=== PATIENT | male | born 1985 | race Caucasian/White ===

== ENCOUNTER 2016-10-21 14:12 | Emergency (ER) | payer OTHER ==
[2016-10-21] MEDS ORDERED: Morphine INJ* 4 MG/ML 1 ML SYRINGE IV ONE (15:07)
[2016-10-21] MEDS ORDERED: Ondansetron INJ* 2 MG/ML VIAL IV ONE ×2 (15:07→17:04)
[2016-10-21] MEDS ORDERED: Pantoprazole IV* 40 MG IV ONE (15:07)
[2016-10-21] MEDS: NS 0.9% 1000 ML* 3,000 ML IV ONE ×2 (15:38→17:08)
[2016-10-21 15:40] LABS: Hematocrit 46 % (42-52); Hemoglobin 15.7 g/dl (14.0-18.0); Mean Corpuscular HGB Conc 34 g/dl (31-36); Mean Corpuscular Hemoglobin 29 pg (27-31); Mean Corpuscular Volume 85 fL (80-94); Mean Platelet Volume 9 um3 (7.4-10.4); Red Blood Count 5.44 10^6/ul (4.0-5.4); Red Cell Distribution Width 14 % (10.5-15); White Blood Count 9.7 10^3/ul (3.5-10.8)
[2016-10-21 15:57] LABS: Albumin 4.2 g/dL (3.2-5.2); BUN/Creatinine Ratio 12.7 (8-20); C Reactive Protein 11.91 mg/L (< 5.00); Calcium 9.4 mg/dL (8.6-10.3); EGFR African American 148.1 (>60); EGFR Non-African American 115.2 (>60); Globulin 3.1 g/dL (2-4); Potassium 3.7 mmol/L (3.5-5.0); Total Bilirubin 0.3 mg/dL (0.2-1.0); Total Protein 7.3 g/dL (6.4-8.9)
[2016-10-21] MEDS ORDERED: Iohexol 300* (CONTRAST) 10 ML SDV IV ONE (16:14)
[2016-10-21] MEDS ORDERED: Ondansetron INJ* 2 MG/ML VIAL ONE (17:06)
--- NOTE | 2016-10-21 17:46 | RAD ---
Indication: Right lower quadrant pain. Contrast: Administered 127.0 ml of OMNIPAQUE 300 mgi/ml CT of the abdomen and pelvis was performed after oral and IV contrast administration. Coronal and sagittal reconstructed images were obtained. Lung bases demonstrate dependent changes. No alveolar consolidation is noted. Heart is of normal size without evidence of pericardial effusion. Liver is normal in size. No focal lesions or intrahepatic ductal dilatation is noted. The spleen is normal in size. Pancreas demonstrates no mass effect or ductal dilatation. Common duct is not dilated. Gallbladder demonstrates no calcified gallstones, pericholecystic fluid or wall thickening. No adrenal lesions are noted. There may be some adrenal hyperplasia of the left adrenal gland. The kidneys demonstrate symmetric nephrograms without focal lesions or hydronephrosis. No retroperitoneal lymphadenopathy is noted. No dilated loops of bowel are noted. CT of the pelvis demonstrates fluid throughout the colon. This may represent gastroenteritis. The terminal ileum is unremarkable. The appendix is visualized and is normal in caliber. No free fluid is identified. The urinary bladder is unremarkable. No hernias are noted. Scattered hyperplastic inguinal lymph nodes are noted bilaterally. IMPRESSION: NORMAL APPENDIX. FLUID-FILLED COLON SUGGESTIVE OF GASTROENTERITIS. DEPENDENT CHANGES ARE NOTED IN THE LUNG CUETO BILATERALLY.
[2016-10-21 18:36] LABS: Urine Bilirubin Negative (Negative); Urine Glucose Negative (Negative); Urine Nitrite Negative (Negative)
[2016-10-21 20:07] VITALS: BP 133/77
--- NOTE | 2016-11-01 07:29 | ED ---
Jason, DoctorEmili, scribed for Marbin Prakash MD on 10/21/16 at 1515 . GI/ HPI - HPI Summary HPI Summary: 31 year old male arrived to [facility] c/o abdominal pain and N/V/D beginning a day and a half ago. He reports pain around the center of his abdomen, and describes it as a "discomfort" which he rates as 2/10. The pain does not radiate. Since yesterday, he has had 5 episodes of vomiting and 4 episodes of diarrhea; he denies any hematemesis or rhinorrhea. However, he is also experiencing a slight subjective fever (better with ibuprofen), generalized muscular pain, BERNSTEIN, decreased appetite, and a cough. He has experienced similar symptoms in the past (about 2.5 years ago, was not admitted to the hospital) and has no other pertinent PMHx or surgical history. - History of Current Complaint Chief Complaint: EDNauseaVomitDiarrh Time Seen by Provider: 10/21/16 14:44 Stated Complaint: VOMITING / DIARRHEA/ABD PAIN Hx Obtained From: Patient Onset/Duration: Started Days Ago Timing: Constant Severity: Moderate Current Severity: Moderate Pain Intensity: 2 Location of Pain: Epigastric Pain Characteristics: Other: - 'discomfort' Associated Signs and Symptoms: Positive: Nausea, Vomiting, Rectal Pain - slight pain during diarrhea, Diarrhea, Fever, Change in Appetite - decreased, Abdominal Pain, Cough, Other: - headache, no rhinorrhea. Negative: Hematemesis , Back Pain Alleviating Factor(s): OTC Analgesics - ibuprofen - lowered fever - Allergy/Home Medications Allergies/Adverse Reactions: Allergies Allergy/AdvReac Type Severity Reaction Status Date / Time No Known Allergies Allergy Verified 08/14/14 14:14 PMH/Surg Hx/FS Hx/Imm Hx Endocrine/Hematology History: Denies: Hx Diabetes, Hx Thyroid Disease Cardiovascular History: Denies: Hx Hypertension Respiratory History: Denies: Hx Asthma, Hx Chronic Obstructive Pulmonary Disease (COPD) GI History: Denies: Hx Ulcer Infectious Disease History: No Infectious Disease History: Denies: Hx Hepatitis, Hx Human Immunodeficiency Virus (HIV), Traveled Outside the [place] in Last 30 Days - Family History Known Family History: Positive: Other - stomach ulcers - Social History Occupation: Employed Full-time Alcohol Use: Rare Substance Use Type: Reports: None Smoking Status (MU): Light Every Day Tobacco Smoker Amount Used/How Often: < 1/2 ppd Review of Systems Positive: Fever Negative: Nasal Discharge Positive: Cough Positive: Abdominal Pain, Vomiting, Diarrhea, Nausea Positive: Myalgia - generalized muscle weakness Positive: Headache All Other Systems Reviewed And Are Negative: Yes Physical Exam - Summary Physical Exam Summary: General appearance: well appearing [], NAD, normal development, good nutrition , normal body habitus, well groomed HEENT: normocephalic, atraumatic, ears and nose without masses or lesions conjunctivae normal, dry oral mucosa, slight rhinorrhea Neck: symmetric without masses or tracheal deviation, no thyromegaly Chest: normal respiratory effort Cardiovascular: good color, warmth, and capillary refill in extremities, no peripheral edema Respiratory: Clear to auscultation Abdomen: tenderness and pain on the left side of the belly, tenderness in RLQ, some epigastric pain, No McBurney's point tenderness Skin: no visible rashes, lesions, or ulcers Neurological/Psychiatric: good fine motor coordination, sensation intact to light touch distally, cranial nerves II-XII grossly intact, appropriate judgment and insight, oriented to time, place and person, normal mood and affect Triage Information Reviewed: Yes Vital Signs On Initial Exam: Initial Vitals Temp Pulse Resp BP Pulse Ox 98.5 F 97 16 138/76 98 10/21/16 14:14 10/21/16 14:14 10/21/16 14:14 10/21/16 14:14 10/21/16 14:14 Vital Signs Reviewed: Yes Diagnostics - Vital Signs Vital Signs Temp Pulse Resp BP Pulse Ox 10/21/16 14: 98.4 F 100 16 138/76 98 10/21/16 14:14 98.5 F 97 16 138/76 98 - Laboratory Lab Results: Lab Results 10/21/16 10/21/16 10/21/16 Range/Units 15:30 15:30 15:30 WBC 9.7 (3.5-10.8) 10^3/ul RBC 5.44 H (4.0-5.4) 10^6/ul Hgb 15.7 (14.0-18.0) g/dl Hct 46 (42-52) % MCV 85 (80-94) fL MCH 29 (27-31) pg MCHC 34 (31-36) g/dl RDW 14 (10.5-15) % Plt Count 187 (150-450) 10^3/ul MPV 9 (7.4-10.4) um3 Neut % (Auto) 77.1 (38-83) % Lymph % (Auto) 9.3 L (25-47) % [place] % (Auto) 11.4 H (1-9) % Eos % (Auto) 1.2 (0-6) % Baso % (Auto) 1.0 (0-2) % Absolute Neuts (auto) 7.5 (1.5-7.7) 10^3/ul Absolute Lymphs (auto) 0.9 L (1.0-4.8) 10^3/ul Absolute Monos (auto) 1.1 H (0-0.8) 10^3/ul Absolute Eos (auto) 0.1 (0-0.6) 10^3/ul Absolute Basos (auto) 0.1 (0-0.2) 10^3/ul Absolute Nucleated RBC 0.01 10^3/ul Nucleated RBC % 0.1 Sodium 136 (133-145) mmol/L Potassium 3.7 (3.5-5.0) mmol/L Chloride 105 (101-111) mmol/L Carbon Dioxide 26 (22-32) mmol/L Anion Gap 5 (2-11) mmol/L BUN 10 (6-24) mg/dL Creatinine 0.79 (0.67-1.17) mg/dL Est GFR ( Amer) 148.1 (>60) Est GFR (Non-Af Amer) 115.2 (>60) BUN/Creatinine Ratio 12.7 (8-20) Glucose 101 H (70-100) mg/dL Lactic Acid 0.8 (0.5-2.0) mmol/L Calcium 9.4 (8.6-10.3) mg/dL Total Bilirubin 0.30 (0.2-1.0) mg/dL AST 19 (13-39) U/L ALT 24 (7-52) U/L Alkaline Phosphatase 81 (34-104) U/L C-Reactive Protein 11.91 H (< 5.00) mg/L Total Protein 7.3 (6.4-8.9) g/dL Albumin 4.2 (3.2-5.2) g/dL Globulin 3.1 (2-4) g/dL Albumin/Globulin Ratio 1.4 (1-3) Amylase 31 (29-103) U/L Lipase 19 (11.0-82.0) U/L Urine Color Urine Appearance Urine pH (5-9) Ur Specific [place] (1.010-1.030) Urine Protein (Negative) Urine Ketones (Negative) Urine Blood (Negative) Urine Nitrate (Negative) Urine Bilirubin (Negative) Urine Urobilinogen (Negative) Ur Leukocyte Esterase (Negative) Urine Glucose (Negative) 10/21/16 Range/Units 18:25 WBC (3.5-10.8) 10^3/ul RBC (4.0-5.4) 10^6/ul Hgb (14.0-18.0) g/dl Hct (42-52) % MCV (80-94) fL MCH (27-31) pg MCHC (31-36) g/dl RDW (10.5-15) % Plt Count (150-450) 10^3/ul MPV (7.4-10.4) um3 Neut % (Auto) (38-83) % Lymph % (Auto) (25-47) % [place] % (Auto) (1-9) % Eos % (Auto) (0-6) % Baso % (Auto) (0-2) % Absolute Neuts (auto) (1.5-7.7) 10^3/ul Absolute Lymphs (auto) (1.0-4.8) 10^3/ul Absolute Monos (auto) (0-0.8) 10^3/ul Absolute Eos (auto) (0-0.6) 10^3/ul Absolute Basos (auto) (0-0.2) 10^3/ul Absolute Nucleated RBC 10^3/ul Nucleated RBC % Sodium (133-145) mmol/L Potassium (3.5-5.0) mmol/L Chloride (101-111) mmol/L Carbon Dioxide (22-32) mmol/L Anion Gap (2-11) mmol/L BUN (6-24) mg/dL Creatinine (0.67-1.17) mg/dL Est GFR ( Amer) (>60) Est GFR (Non-Af Amer) (>60) BUN/Creatinine Ratio (8-20) Glucose (70-100) mg/dL Lactic Acid (0.5-2.0) mmol/L Calcium (8.6-10.3) mg/dL Total Bilirubin (0.2-1.0) mg/dL AST (13-39) U/L ALT (7-52) U/L Alkaline Phosphatase (34-104) U/L C-Reactive Protein (< 5.00) mg/L Total Protein (6.4-8.9) g/dL Albumin (3.2-5.2) g/dL Globulin (2-4) g/dL Albumin/Globulin Ratio (1-3) Amylase (29-103) U/L Lipase (11.0-82.0) U/L Urine Color Yellow Urine Appearance Clear Urine pH 5.0 (5-9) Ur Specific [place] > 1.060 H (1.010-1.030) Urine Protein Negative (Negative) Urine Ketones Negative (Negative) Urine Blood Negative (Negative) Urine Nitrate Negative (Negative) Urine Bilirubin Negative (Negative) Urine Urobilinogen Negative (Negative) Ur Leukocyte Esterase Negative (Negative) Urine Glucose Negative (Negative) Result Diagrams: 10/21/16 15:30 10/21/16 15:30 Lab Statement: Any lab studies that have been ordered have been reviewed, and results considered in the medical decision making process. - CT CT A/P CT Interpretation Completed By: Radiologist - IMPRESSION: NORMAL APPENDIX. FLUID -FILLED COLON SUGGESTIVE OF GASTROENTERITIS. DEPENDENT CHANGES ARE NOTED IN THE LUNG CUETO BILATERALLY. Re-Evaluation - Re-Evaluation First Eval Re-Evaluation Time: 18:05 Change: Unchanged Comment: Discussed CT results with pt Second Eval Re-Evaluation Time: 18:57 Comment: Discussed treatment options with pt. He is stable and ready for discharge. GIGU Course/Dx - Diagnoses Provider Diagnoses: Dehydration, Gastroenteritis Discharge - Discharge Plan Condition: Stable Disposition: HOME Prescriptions: Ondansetron ODT TAB* [Zofran 4 MG Odt TAB*] 4 mg PO Q8H PRN #20 tab.odt PRN Reason: nausea Patient Education Materials: Dehydration (ED), Gastroenteritis (ED) Referrals: Beltran Patel MD [Primary Care Provider] - The documentation as recorded by the Doctor altamirano Tahera accurately reflects the service I personally performed and the decisions made by me, Marbin Prakash MD.
== END 2016-10-21 20:06 | disposition home or self-care (01) ==
LOC: ED 14:12
DX: E86.0 Dehydration (principal); K52.9 Noninfective gastroenteritis and colitis, unspecified; R50.9 Fever, unspecified; R10.9 Unspecified abdominal pain; R05 Cough; R51 Headache; F17.210 Nicotine dependence, cigarettes, uncomplicated
CPT/HCPCS: 36415; 74177; 80053; 81003; 82150; 83605; 83690; 85025; 86140; 96361; 96374; 99283; J2270; J2405; Q9967

== ENCOUNTER 2017-08-24 12:30 | Emergency (ER) | payer OTHER ==
[2017-08-24 13:39] VITALS: BP 115/72
--- NOTE | 2017-08-24 16:19 | UC ---
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 - History of Current Complaint Chief Complaint: UCGeneralIllness Stated Complaint: COUGH Time Seen by Provider: 08/24/17 15:52 Hx Obtained From: Patient Onset/Duration: Gradual Onset, Lasting Weeks - 4, Still Present Timing: Constant Severity Initially: Moderate Severity Currently: Moderate Pain Intensity: 2 Character: Cough: Productive Aggravating Factors: Deep Breaths Alleviating Factors: Nothing Associated Signs And Symptoms: Positive: Pleuritic Chest Pain, Nasal Congestion - Allergies/Home Medications Allergies/Adverse Reactions: Allergies Allergy/AdvReac Type Severity Reaction Status Date / Time No Known Allergies Allergy Verified 08/24/17 13:39 Home Medications: Home Medications Divalproex ER TAB(*) [Depakote ER TAB(*)] 500 mg PO QPM 08/24/17 [History Confirmed 08/24/17] PMH/Surg Hx/FS Hx/Imm Hx Previously Healthy: No Psychological History: Bipolar Disorder - Surgical History Surgical History: None - Family History Known Family History: Positive: Other - stomach ulcers - Social History Occupation: Employed Full-time Lives: With Family Alcohol Use: Rare Substance Use Type: None Smoking Status (MU): Light Every Day Tobacco Smoker Amount Used/How Often: < 1/2 ppd - Immunization History Most Recent Tetanus Shot: UTD Review of Systems Constitutional: Negative Skin: Negative Eyes: Negative ENT: Negative Respiratory: Negative Cardiovascular: Negative Gastrointestinal: Negative Genitourinary: Negative Motor: Negative Neurovascular: Negative Musculoskeletal: Negative Neurological: Negative Psychological: Negative Is Patient Immunocompromised?: No All Other Systems Reviewed And Are Negative: Yes Physical Exam Triage Information Reviewed: Yes Appearance: Well-Appearing, No Pain Distress, Well-Nourished Vital Signs: Initial Vital Signs Temp 97.4 F 08/24/17 13:35 Pulse 88 08/24/17 13:35 Resp 20 08/24/17 13:35 BP 115/72 08/24/17 13:35 Pulse Ox 97 08/24/17 13:35 Vital Signs Reviewed: Yes Eye Exam: Normal Eyes: Positive: Conjunctiva Clear ENT Exam: Normal ENT: Positive: Normal ENT inspection, Hearing grossly normal, Pharynx normal, Nasal congestion, Nasal drainage, Uvula midline. Negative: Tonsillar swelling, Tonsillar exudate, Trismus, Muffled voice, Hoarse voice, Dental tenderness, Sinus tenderness Dental Exam: Normal Neck exam: Normal Neck: Positive: Supple, Nontender, No Lymphadenopathy Respiratory Exam: Normal Respiratory: Positive: Chest non-tender, Lungs clear, Normal breath sounds, No respiratory distress, No accessory muscle use Cardiovascular Exam: Normal Cardiovascular: Positive: RRR, No Murmur, Pulses Normal, Brisk Capillary Refill Musculoskeletal Exam: Normal Musculoskeletal: Positive: Strength Intact, ROM Intact, No Edema Neurological Exam: Normal Neurological: Positive: Alert, Muscle Tone Normal Psychological Exam: Normal Skin Exam: Normal UC Diagnostic Evaluation - Laboratory O2 Sat by Pulse Oximetry: 97 Respiratory Course/Dx - Course Course Of Treatment: Augmentin, sinusitis, albuterol, increase fluids, refused work note follow with pcp - Differential Dx/Diagnosis Provider Diagnoses: Bronchitis, Acute Rhinosinusitis Discharge - Discharge Plan Condition: Stable Disposition: HOME Prescriptions: Albuterol HFA INHALER* [Ventolin HFA Inhaler*] 2 puff INH Q4H PRN #1 mdi PRN Reason: cough/chest tightness Amoxicillin/Clavulanate TAB* [Augmentin TAB 875*] 875 mg PO BID #20 tab Fluticasone NASAL SPRAY 50MCG* [Flonase NASAL SPRAY 50MCG*] 2 spray BOTH NARES DAILY #1 btl Patient Education Materials: Sinusitis (ED), How to Use a Metered-Dose Inhaler (ED), Acute Bronchitis (ED), How to Use Nasal [place] (ED) Referrals: Beltran Patel MD [Primary Care Provider] - If Needed
== END 2017-08-24 16:44 | disposition home or self-care (01) ==
LOC: UCEAST 12:30
DX: J40 Bronchitis, not specified as acute or chronic (principal); J01.90 Acute sinusitis, unspecified; F17.210 Nicotine dependence, cigarettes, uncomplicated
CPT/HCPCS: 99212; G0463

== ENCOUNTER 2017-11-16 02:58 | Inpatient (IN) | payer OTHER ==
[2017-11-16 03:29] LABS: ABS Basophils 0.1 10^3/ul (0-0.2); ABS Eosinophils 0.2 10^3/ul (0-0.6); ABS Lymphocytes 2.5 10^3/ul (1.0-4.8); ABS Monocytes 0.9 10^3/ul (0-0.8); ABS Neutrophils 9.4 10^3/ul (1.5-7.7); ABS Nucleated RBC 0 10^3/ul; Eosinophil % 1.7 % (0-6); Hematocrit 43 % (42-52); Hemoglobin 14.8 g/dl (14.0-18.0); Mean Corpuscular HGB Conc 34 g/dl (31-36); Mean Corpuscular Hemoglobin 30 pg (27-31); Mean Corpuscular Volume 87 fL (80-94); Mean Platelet Volume 9.4 um3 (7.4-10.4); Nucleated Red Blood Cells % 0.1; Platelet Count 251 10^3/ul (150-450); Red Blood Count 4.97 10^6/ul (4.0-5.4); Red Cell Distribution Width 15 % (10.5-15); White Blood Count 13.1 10^3/ul (3.5-10.8)
[2017-11-16 03:34] LABS: Urine Appearance Clear; Urine Blood Negative (Negative); Urine Color Yellow; Urine Ketones Trace (Negative); Urine Protein Negative (Negative); Urine Specific Gravity 1.024 (1.010-1.030); Urine Urobilinogen Negative (Negative)
[2017-11-16 03:45] LABS: EGFR Non-African American 83.3 (>60)
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
[2017-11-16] MEDS ORDERED: Divalproex DR TAB(*) 500 MG PO ONE (10:09)
[2017-11-16] MEDS ORDERED: QUEtiapine TAB* 100 MG PO ONE (10:09)
[2017-11-16] MEDS ORDERED: Ibuprofen TAB* 600 MG PO PRN (10:10)
[2017-11-16] MEDS ORDERED: Albuterol HFA INHALER* 8 gm MDI INH PRN (13:18)
[2017-11-16] MEDS ORDERED: Al Hydrox/Mg Hydrox/Simet LIQ* 30 ML UDC PO PRN (13:19)
[2017-11-16] MEDS ORDERED: Acetaminophen TAB* 325 MG PO PRN (13:19)
[2017-11-16] MEDS ORDERED: Nicotine GUM* 2 MG PO PRN (13:19)
[2017-11-16] MEDS ORDERED: Nicotine Inhaler* 10 MG AMP INH PRN (13:19)
[2017-11-16] MEDS ORDERED: Mouth Piece, Nicotine* 1 EACH CARTRIDGE INH ONE (14:00)
[2017-11-16] MEDS: Ibuprofen TAB* 600 MG PO SCH ×2 (17:18→20:38)
[2017-11-16] MEDS: QUEtiapine TAB* 100 MG PO SCH ×2 (20:41→20:55)
[2017-11-16] MEDS: Divalproex ER TAB(*) 500 MG PO SCH ×2 (20:41→20:55)
[2017-11-17] MEDS: Divalproex DR TAB(*) 500 MG PO SCH ×2 (10:01→20:58)
[2017-11-17] MEDS: Nicotine PATCH 7 MG/24 HR* PATCH TRANSDERM SCH (10:03)
[2017-11-17] MEDS: Vitamin THERAPEUTIC TAB PO SCH (10:03)
[2017-11-17] MEDS: QUEtiapine TAB* 100 MG PO SCH ×2 (10:03→22:02)
[2017-11-17] MEDS: Ibuprofen TAB* 600 MG PO SCH ×3 (10:04→20:57)
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
[2017-11-17] MEDS ORDERED: Divalproex DR TAB(*) 500 MG PO SCH (21:00)
[2017-11-18] MEDS: Ibuprofen TAB* 600 MG PO SCH ×3 (06:00→23:00)
[2017-11-18] MEDS: Divalproex DR TAB(*) 500 MG PO SCH ×2 (09:39→21:29)
[2017-11-18] MEDS: Nicotine PATCH 7 MG/24 HR* PATCH TRANSDERM SCH (09:40)
[2017-11-18] MEDS: Vitamin THERAPEUTIC TAB PO SCH (09:40)
[2017-11-18] MEDS: QUEtiapine TAB* 100 MG PO SCH ×2 (09:40→21:30)
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
[2017-11-19] MEDS: Ibuprofen TAB* 600 MG PO SCH ×3 (06:00→21:39)
[2017-11-19] MEDS: Divalproex DR TAB(*) 500 MG PO SCH ×2 (09:04→21:37)
[2017-11-19] MEDS: Vitamin THERAPEUTIC TAB PO SCH (09:05)
[2017-11-19] MEDS: Nicotine PATCH 7 MG/24 HR* PATCH TRANSDERM SCH (09:05)
[2017-11-19] MEDS: QUEtiapine TAB* 100 MG PO SCH (21:38)
[2017-11-20] MEDS: Ibuprofen TAB* 600 MG PO SCH ×3 (06:00→22:04)
[2017-11-20 07:25] LABS: EGFR Non-African American 114.4 (>60)
[2017-11-20] MEDS: Divalproex DR TAB(*) 500 MG PO SCH ×2 (10:03→22:02)
[2017-11-20] MEDS: Vitamin THERAPEUTIC TAB PO SCH (10:04)
[2017-11-20] MEDS: Nicotine PATCH 7 MG/24 HR* PATCH TRANSDERM SCH (10:04)
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
[2017-11-20] MEDS: QUEtiapine TAB* 100 MG PO SCH (22:03)
[2017-11-21] MEDS: Ibuprofen TAB* 600 MG PO SCH ×3 (06:00→21:42)
[2017-11-21] MEDS: Divalproex DR TAB(*) 500 MG PO SCH ×2 (09:09→21:42)
[2017-11-21] MEDS: Vitamin THERAPEUTIC TAB PO SCH (09:10)
[2017-11-21] MEDS: Nicotine PATCH 7 MG/24 HR* PATCH TRANSDERM SCH (09:10)
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
[2017-11-21] MEDS: QUEtiapine TAB* 100 MG PO SCH (21:42)
[2017-11-22] MEDS: Ibuprofen TAB* 600 MG PO SCH ×4 (08:33→20:59)
[2017-11-22] MEDS: Nicotine PATCH 7 MG/24 HR* PATCH TRANSDERM SCH (09:14)
[2017-11-22] MEDS: Vitamin THERAPEUTIC TAB PO SCH (09:14)
[2017-11-22] MEDS: Divalproex DR TAB(*) 500 MG PO SCH ×2 (09:15→20:57)
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
[2017-11-22] MEDS: QUEtiapine TAB* 100 MG PO SCH (20:58)
[2017-11-23 07:41] VITALS: BP 120/63
[2017-11-23] MEDS: Nicotine PATCH 7 MG/24 HR* PATCH TRANSDERM SCH (08:15)
[2017-11-23] MEDS: Ibuprofen TAB* 600 MG PO SCH ×2 (08:15→14:05)
[2017-11-23] MEDS: Divalproex DR TAB(*) 500 MG PO SCH (08:16)
[2017-11-23] MEDS: Vitamin THERAPEUTIC TAB PO SCH (08:39)
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
--- NOTE | 2017-12-12 08:06 | ED ---
Herson Gomez Gabriel, garrettibed for Xu Agarwal MD on 11/16/17 at 1130 . Progress - Progress Note Progress Note: This patient was signed out from Dr. Murrell, pending disposition, awaiting MHE. After MHE by Dr. Danielson the patient was diagnosed with bipolar disorder. The patients condition is stable and will be a voluntary admission. - Consult/PCP Time Called: 02:59 Course/Dx - Course Course Of Treatment: This patient was signed out from Dr. Murrell, pending disposition, awaiting MHE. After MHE by Dr. Danielson the patient was diagnosed with bipolar disorder. The patients condition is stable and will be a voluntary admission. - Diagnoses Provider Diagnoses: Bipolar disorder Discharge - Sign-Out/Discharge Documenting (check all that apply): Discharge/Admit/Transfer - admitted - Discharge Plan Condition: Stable [place] [facility] [place]: Beltran Patel MD [Primary Care Provider] - The documentation as recorded by the Herson altamirano Gabriel accurately reflects the service I personally performed and the decisions made by Any campos Jerry, MD.
== END 2017-11-23 16:39 | disposition home or self-care (01) | DRG 753 ==
LOC: ED 02:58 → BSU 16:36
PROVIDERS: ADMIT Psychiatry & Neurology Psychiatry; ATTEND Psychiatry & Neurology Psychiatry
DX: F31.13 Bipolar disorder, current episode manic without psychotic features, severe (principal); R45.851 Suicidal ideations; F17.210 Nicotine dependence, cigarettes, uncomplicated; F31.81 Bipolar II disorder; Z72.89 Other problems related to lifestyle; Z83.79 Family history of other diseases of the digestive system
CPT/HCPCS: 36415; 80053; 80061; 80164; 80307; 80320; 80329; 81003; 81015; 83036; 84443; 85025; 87086; 93005; 99222; 99231; 99232; 99238; 99283; A9270-GY; G0480

== ENCOUNTER 2019-03-16 14:17 | Emergency (ER) | payer OTHER ==
[2019-03-16 15:51] VITALS: BP 138/92
--- NOTE | 2019-03-16 15:52 | UC ---
Dental HPI - HPI Summary HPI Summary: 33 yo male presents with dental pain. He tells me that he has a history of bad teeth and has had frequent dental abscesses. Over the last 2-3 days has had pain , swelling, and throbbing to a left lower tooth. He has been taking ibuprofen for discomfort with mild relief of pain. Denies fever, chills. He is tolerating po well - History of Current Complaint Chief Complaint: UCDentalProblem Stated Complaint: L MOUTH/FACE COMP Time Seen by Provider: 03/16/19 15:52 Hx Obtained From: Patient Severity: Moderate Pain Intensity: 5 Pain Scale Used: 0-10 Numeric - Allergies/Home Medications Allergies/Adverse Reactions: Allergies Allergy/AdvReac Type Severity Reaction Status Date / Time No Known Allergies Allergy Verified 03/16/19 15:51 PMH/Surg Hx/FS Hx/Imm Hx Psychological History: Depression, Bipolar Disorder - Surgical History Surgical History: None - Family History Known Family History: Positive: Other - stomach ulcers - Social History Lives: With Family Alcohol Use: Rare Substance Use Type: Prescribed Smoking Status (MU): Heavy Every Day Tobacco Smoker Amount Used/How Often: 1/2 PPD for last 30 days and used no other tobacco products in last 30 days - Immunization History Most Recent Influenza Vaccination: unable to recall. Most Recent Tetanus Shot: UTD Most Recent Pneumonia Vaccination: NA Review of Systems All Other Systems Reviewed And Are Negative: No Constitutional: Positive: Negative Skin: Positive: Negative ENT: Positive: Dental Pain Respiratory: Positive: Negative Cardiovascular: Positive: Negative Neurovascular: Positive: Negative Neurological: Positive: Negative Psychological: Positive: Negative Physical Exam - Summary Physical Exam Summary: GENERAL: NAD. WDWN. No pain distress. SKIN: No rashes, sores, lesions, or open wounds. HEENT: Head: AT/NC Nose: Nasal mucosa pink and moist. NTTP maxillary and frontal sinus. Throat: Posterior oropharynx without exudates, erythema, or tonsillar enlargement. Uvula midline. NECK: Supple. Nontender. No lymphadenopathy. CHEST: CTAB. No r/r/w. No accessory muscle use. Breathing comfortably and in no distress. CV: RRR. Without m/r/g. Pulses intact. Cap refill <2seconds NEURO: Alert. PSYCH: Age appropriate behavior. Triage Information Reviewed: Yes Vital Signs: Initial Vital Signs Temp 99.9 F 03/16/19 15:48 Pulse 101 03/16/19 15:48 Resp 18 03/16/19 15:48 BP 138/92 03/16/19 15:48 Pulse Ox 99 03/16/19 15:48 Vital Signs Reviewed: Yes Dental: Positive: Percussion Tenderness @ - Tooth #19, Gross Decay/Caries @ - throughout, Dental Fracture @ - throughout, Abscess @ - Tooth #19. Negative: Cellulitis @, Cervical Lymphadenopathy, Bleeding Procedures - Incision and Drainage Left Lower Anesthesia: Topical Instrument(s): Needle - 22G Packing: Other - None Dental Complaint Course/Dx - Course Course Of Treatment: Dental abscess. The procedure was explained to the pt and all questions were answered. A time out was performed, witnessed, and signed. The area anesthetized with cetacaine and good anesthetization was achieved. A 22G needle was used to yuli the dental abscess and copious purulent yellow material was expressed. Pt tolerated well. Will place him on clindamycin for dental abscess and advise him to f/u with dentist as soon as possible. - Differential Dx/Diagnosis Provider Diagnosis: Dental abscess Discharge ED - Sign-Out/Discharge Documenting (check all that apply): Patient Departure All imaging exams completed and their final reports reviewed: No Studies - Discharge Plan Condition: Stable Disposition: HOME Prescriptions: Clindamycin HCl 300 mg PO TID #21 capsule Patient Education Materials: Dental Abscess (ED) Referrals: Gloria Clark DO [Primary Care Provider] - Additional Instructions: If you develop a fever, shortness of breath, chest pain, new or worsening symptoms - please call your PCP or go to the ED immediately. Your blood pressure was high at todays visit. Please see your primary provider within 4 weeks for recheck and re-evaluation. Please follow up with your dentist as soon as possible - Billing Disposition and Condition Condition: STABLE Disposition: Home
[2019-03-16] MEDS ORDERED: Benzocaine/Butamben/Tetracain (CETACAINE - SINGLE USE) 5 gm TOPICAL ONE (15:56)
[2019-03-16] MEDS ORDERED: Clindamycin CAP* 150 MG PO ONE (16:16)
== END 2019-03-16 16:24 | disposition home or self-care (01) ==
LOC: UCEAST 14:17
DX: K04.7 Periapical abscess without sinus (principal); K03.81 Cracked tooth; K02.9 Dental caries, unspecified; F17.210 Nicotine dependence, cigarettes, uncomplicated
CPT/HCPCS: 99212; A9270-GY; G0463